=== PATIENT | male | born 1970 | race Caucasian/White ===

== ENCOUNTER → 2017-01-19 | Outpatient (CLI) | payer OTHER ==
[~2017-01-19] VITALS: Ht 170.2 cm; Wt 70.3 kg
[~2017-01-19] MED LIST: AMLODIPINE BESYL5 MG PO; ASPIRIN325 PO; BENAZEPRIL HCL10 MG PO; DIOVAN40 MG PO; IBUPROFEN 200200 M1 PO; LEVOXYL88 MCG PO; LOTENSIN5 MG PO; METHOTREXA250 MG/10 SC; PREVACID30 M1 PO; PREVACID30 MG PO; ZANTAC 150MG T150 MG PO
--- NOTE | ~2017-01-19 | P ---
[facility] [place] [address] PROCEDURE REPORT Name: AUSTEN AUSTIN [id number] Admission: 01/19/17 Attend Phys: Gilles Donnelly Discharge: Date of : 72 Report #: [id number] THIS REPORT FOR: //name// CC: Gilles Hampton DO DATE OF SERVICE: 01/19/2017 PROCEDURE PERFORMED: PEG tube removal and replacement. 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 His button PEG that is currently in place is old and needs to be replaced. He denies any other symptoms at this time. PHYSICAL EXAMINATION: VITAL SIGNS: The patient is afebrile. Vital signs are stable. HEENT: Sclerae nonicteric. Oropharynx clear. Significant skin changes of his neck and face due to scleroderma. CARDIOVASCULAR: Regular rate and rhythm. CHEST: Clear to auscultation bilaterally. ABDOMEN: Soft, nontender, nondistended, normoactive bowel sounds. Old button PEG tube was removed without difficulty. Initially tried to place a 24-Beninese button PEG; however, due to stenosis at the ostomy site, unable to pass; therefore, an 18-Beninese was placed without difficulty. IMPRESSION: Status post removal of old PEG and replacement with new PEG at the bedside. RECOMMENDATIONS: Okay to start using PEG at this time. Thank you for allowing me to participate in his care. <ELECTRONICALLY SIGNED> By: Gilles Pena MD 01/20/17 1742 [id number] Gilles Pena MD /nt
== END | disposition home or self-care (01) ==
LOC: GI 10:04
DX: M34.9 Systemic sclerosis, unspecified (principal); K21.9 Gastro-esophageal reflux disease without esophagitis; E03.9 Hypothyroidism, unspecified

== ENCOUNTER → 2019-01-10 | Outpatient (CLI) | payer OTHER ==
--- NOTE | 2019-01-15 11:57 | P ---
[facility] [place] [address] PROCEDURE REPORT Name: GEOVANNAAUSTEN Kole Room #: REG [facility] Ivan#: [id number] Admission: 01/10/19 Attend Phys: Gilles Donnelly Discharge: Date of : 72 Report #: [id number] THIS REPORT FOR: //name// CC: Gilles Hampton DO DATE OF SERVICE: 01/10/2019 PROCEDURE PERFORMED: Removal of button PEG tube and replacement with new PEG tube at the bedside. HISTORY OF PRESENT ILLNESS: The patient is a 48-year-old male with a history of severe scleroderma and dysphagia. He is PEG tube dependent. His bumper PEG tube has deteriorated and is old and needs to be replaced. The tube was removed with traction without difficulty. A new 18-Icelandic 1.7 cm button PEG was inserted without difficulty. There was a small amount of bleeding at the site. This stopped spontaneously. He does have some skin excoriation around the site as well. We had attempted in the past a larger tube, but this was not possible. The patient tolerated the exchange without difficulty. I explained to the patient he is okay to start using the new PEG tube at this time. As far as the skin around the PEG site, could consider wound care to evaluate if it is bothersome for the patient. Thank you for allowing me to participate in his care. <ELECTRONICALLY SIGNED> By: Gilles Pena MD 01/15/19 1157 1140 Gilles Pena MD /nt
== END | disposition home or self-care (01) ==
LOC: GI 10:12
DX: Z43.1 Encounter for attention to gastrostomy (principal)